=== PATIENT | male | born 1990 | race Hispanic/Latino ===

== ENCOUNTER → 2024-11-27 | Outpatient (REF) | payer OTHER ==
[~2024-11-27] MED LIST: OMEPRAZOLE40 MG PO
== END ==
LOC: US 10:31
PROVIDERS: ATTEND Nurse Practitioner Family
DX: K82.4 Cholesterolosis of gallbladder (principal)
CPT/HCPCS: 76705

== ENCOUNTER → 2024-11-28 | Day surgery (SDC) | payer OTHER ==
[~2024-11-28] MED LIST changes: +LIDOCAINE HCL 2% LOCAL INJ 5 ML SDV VIAL INJ ONE; +MIDAZOLAM HCL 2 MG/2 ML VIAL ONE; +PROPOFOL IV EMULSION 50 ML IV ONE
[2024-11-28] MEDS: LACTATED RINGER'S 1,000 ML ONE (05:59)
[2024-11-28 07:25] VITALS: BP 115/82; PULSE 60; RESP 18; O2SAT 99
== END | disposition home or self-care (01) ==
LOC: OR 04:51
PROVIDERS: ATTEND Internal Medicine Gastroenterology
DX: K29.70 Gastritis, unspecified, without bleeding (principal); K31.7 Polyp of stomach and duodenum; K20.80 Other esophagitis without bleeding; K44.9 Diaphragmatic hernia without obstruction or gangrene; R13.10 Dysphagia, unspecified; R19.4 Change in bowel habit; K64.8 Other hemorrhoids; Z01.810 Encounter for preprocedural cardiovascular examination; I10 Essential (primary) hypertension; E78.00 Pure hypercholesterolemia, unspecified
CPT/HCPCS: 43239; 45380; 93005; J2003; J2250; J2704; J7121; 45378